=== PATIENT | male | born 1960 | race Caucasian/White ===

== ENCOUNTER 2017-04-29 11:26 | Emergency (ER) | payer BC ==
[~2017-04-29] VITALS: Ht 167.6 cm; Wt 94.2 kg
[2017-04-29 11:30] VITALS: Ht 167.6 cm; Wt 94.2 kg
[2017-04-29 12:51] LABS: ALT/SGPT 19 U/L (12-78); AST/SGOT 12 U/L (15-37); BLOOD UREA NITROGEN 13 mg/dl (7-18); BUN/CREATININE RATIO 19.6 (10-20); CALCIUM 9.1 mg/dl (8.5-10.1); CARBON DIOXIDE 22 mmol/L (21-32); CHLORIDE 107 mmol/L (98-107); CREATININE 0.68 mg/dl (0.60-1.40); GLUCOSE 101 mg/dl (70-99); SODIUM 139 mmol/L (136-145)
[2017-04-29 12:56] LABS: ALKALINE PHOSPHATASE 49 U/L (45-117)
[2017-04-29] MEDS ORDERED: OPTIRAY 320 IV PRN (13:00)
--- NOTE | 2017-04-29 13:20 | DIAGNOSTIC IMAGING REPORT ---
CHEST ONE VIEW PORTABLE CLINICAL HISTORY: Atypical chest pain COMPARISON STUDY: No previous studies for comparison. FINDINGS: The heart is at the upper limits of normal in size. There is no failure. There is no focal pulmonary consolidation. There are no pleural effusions.[ IMPRESSION: No active disease in the chest. Electronically signed by: Rizwan Geronimo M.D. 04/29/2017 1:19 PM Dictated Date/Time: 04/29/2017 1:18 PM
[2017-04-29 13:21] LABS: BASO % 0.2 %; BASO ABS # 0.02 K/uL (0-0.2); COMPLETE YES; EOS % 2.6 %; HEMATOCRIT 37.6 % (42-52); IG% 0.2 %; LYMPH % 18.3 %; LYMPH ABS # 1.69 K/uL (1.2-3.4); MEAN CELL VOLUME 78.8 fL (80-100); MEAN CORPUSCULAR HEMOGLOBIN 26.8 pg (25-34); MEAN PLATELET VOLUME 9.6 fL (7.4-10.4); MONO % 8.7 %; PLATELET COUNT 192 K/uL (130-400); RED BLOOD COUNT 4.77 M/uL (4.7-6.1); WHITE BLOOD COUNT 9.23 K/uL (4.8-10.8)
[2017-04-29] MEDS ORDERED: SITA50TA3 PO (13:29)
[2017-04-29] MEDS ORDERED: ALLO100T PO (13:29)
[2017-04-29] MEDS ORDERED: LORA-749 PO (13:29)
[2017-04-29] MEDS ORDERED: LISI-788 PO (13:29)
[2017-04-29] MEDS ORDERED: DEXT30TA7 PO (13:29)
[2017-04-29] MEDS ORDERED: FENO54TA PO (13:29)
[2017-04-29 14:01] LABS: URINE APPEARANCE CLEAR (CLEAR); URINE BILIRUBIN NEG (NEG); URINE COLOR YELLOW; URINE EPITHELIAL CELL AUTO 0-5 /lpf (0-5); URINE NITRITE NEG (NEG); URINE PH 5.5 (4.5-7.5); URINE SPECIFIC GRAVITY 1.016 (1.000-1.030); UROBILINOGEN NEG (NEG); ZZUR CULT IF INDIC CLEAN CATCH NO
[2017-04-29 14:06] LABS: MANUAL MICROSCOPIC REQUIRED? NO; REVIEW REQ? NO
[2017-04-29 14:24] LABS: LYME DISEASE AB IGG NEG (NEG); LYME DISEASE AB IGM NEG (NEG)
--- NOTE | 2017-04-29 14:49 | DIAGNOSTIC IMAGING REPORT ---
ABDOMEN AND PELVIS CT WITH IV CONTRAST CT DOSE: 978.21 mGycm HISTORY: tearing right upper abdominal pain, no trauma TECHNIQUE: Multiaxial CT images of the abdomen and pelvis were performed following the use of intravenous contrast. COMPARISON STUDY: None. FINDINGS: Right lower lobe groundglass and linear densities. The left lung base is clear. No fractures within the visualized osseous structures. The liver, gallbladder, pancreas, adrenal glands, and right kidney are unremarkable. The spleen is at the upper limits of normal. A 4 mm hypodense lesion within the lower pole of the left kidney is too small to characterize. No retroperitoneal lymphadenopathy. Mild bladder wall thickening. Minimal pelvic free fluid. The prostate gland is mildly enlarged. Colonic diverticulosis. No bowel wall thickening or obstruction. Normal appendix. IMPRESSION: 1. Right lower lobe groundglass and linear densities. This could be due to chronic change/scarring or a mild pneumonitis. 2. No bowel wall thickening or obstruction. 3. Colonic diverticulosis. 4. Normal appendix. 5. Minimal pelvic free fluid. Electronically signed by: Randy Hobbs M.D. 04/29/2017 2:48 PM Dictated Date/Time: 04/29/2017 2:40 PM
[2017-04-29] MEDS ORDERED: ACETAMINOPHEN 500 MG TAB PO STA (15:51)
[2017-04-29] MEDS ORDERED: LEVOFLOXACIN 250 MG TAB PO STA (15:51)
[2017-04-29] MEDS ORDERED: PRED20TA PO (15:53)
[2017-04-29] MEDS ORDERED: LEVO-366 PO (15:53)
[2017-04-29 16:40] VITALS: BP 143/90; PULSE 78; TEMP 37.1; O2SAT 96
--- NOTE | 2017-04-29 20:21 | EMERGENCY ROOM VISIT NOTE ---
History Report prepared by [place]: Clarence Zhang Under the Supervision of: Dr. Steffen Batista M.D. First contact with patient: 12:35 Chief Complaint: ABDOMINAL PAIN Stated Complaint: TEARING SENSATION IN ABD,R FOOT/L ANKLE PAIN Nursing Triage Summary: Pt. reports tearing abdominal pain that started around . Denies any injury, just states that he sat down in his car and it started. Also reporting bilateral ankle pain that started about 3 weeks ago and states he's had three different diagnoses for it (including diabetic neuropathy, cellulitis and plantar fasciitis). History of Present Illness The patient is a 57 year old male who presents to the Emergency Room with complaints of persistent abdominal pain that started a week and a half ago. He says that he was just sitting in his car when the pain came on. The patient describes the pain as a "tearing" pain, and is sometimes worsened when sitting down. He states that he occasionally gets a quick stabbing pain in his abdomen when he sits down. He rates his pain as a 2 or 3 out of 10. The patient denies any bulges in his abdomen. He says that he has continued to have the pain, and his wanted him to come here to be seen. The patient adds that he has had right foot pain as well during this time period that travels intermittently all the way up to his knee. He says that he has not been walking normally. The patient states he has been seen by his primary care PA, as well as at [facility] and the ER in [place]. He was told by his PA that it was diabetic neuropathy, and was given Keflex. The patient says that [facility] diagnosed him with plantar fasciatus, and was told to do exercises, which he has been doing, with no relief of pain, but the swelling has gone down a bit. The patient notes that 4 days ago, he started having left ankle pain. He started using crutches today due to the severity of his pain. The patient says that he has had cold symptoms recently, with congestion. He has hypertension, which he says is under control with medication. The patient was diagnosed with Type 2 diabetes a few months ago, and has had it under control with medication and weight loss. Pt denies LOC, headache, fevers, chills, diaphoresis, visual changes, neck pain, chest pain, breathing difficulties, nausea, vomiting, back pain, melena, hematochezia, urinary symptoms, numbness, weakness, lymphadenopathy, rash, or other complaints. Source of History: patient Onset: A week and a half ago Position: abdomen Symptom Intensity: 2 or 3 out of 10 Quality: stabbing, other (tearing) Timing: other (persistent) Modifying Factors (Worsening): other (sitting down) Note: Associated symptoms: Right foot pain and swelling, intermittently travels up to right knee. Left ankle pain started 4 days ago. Congested. Review of Systems See HPI for pertinent positives and negatives. A total of ten systems were reviewed and were otherwise negative. Past Medical & Surgical Medical Problems: (1) Diabetes (2) Gout (3) HTN (hypertension) (4) Hypertension Family History Cancer Diabetes mellitus Heart disease Hypertension Social History Smoking Status: Never Smoker Marital Status: Housing Status: lives with family Current/Historical Medications Scheduled Allopurinol (Zyloprim), 100 MG PO QAM Fenofibrate (Tricor), 54 MG PO QAM Levofloxacin (Levaquin), 500 MG PO DAILY Lisinopril/Hctz (Zestoretic 20MG/25MG), 1 TAB PO QAM Loratadine & Pseudoephedrine (Claritin-D 24 Hour), 1 TAB PO QAM Prednisone (Prednisone), 20 MG PO DAILY Sitagliptin (Januvia), 50 MG PO QAM Scheduled PRN Dextromethorphan-Guaifenesin (Mucinex Dm), 1 TAB PO Q12 PRN for Nasal Congestion Allergies Coded Allergies: Sulfa Antibiotics (Verified Allergy, Unknown, fever, hives, 04/29/17) Uncoded Allergies: GAMMA GLOBULINS (Allergy, Unknown, fever, 04/29/17) Physical Exam Vital Signs Date Time Temp Pulse Resp B/P (MAP) Pulse Ox O2 Delivery O2 Flow Rate FiO2 04/29/17 16:40 37.1 78 20 143/90 96 04/29/17 14:45 70 13 140/87 95 Room Air 04/29/17 14:00 73 15 136/85 96 Room Air 04/29/17 12:55 80 15 133/81 93 Room Air 04/29/17 12:51 80 04/29/17 11:54 84 16 135/80 95 Room Air 04/29/17 11:30 36.7 87 18 134/77 95 Room Air Physical Exam GENERAL: Awake, alert, well-appearing, in no distress HENT: Normocephalic, atraumatic. Oropharynx unremarkable. EYES: Normal conjunctiva. Sclera non-icteric. NECK: Supple. No nuchal rigidity. FROM. No JVD. RESPIRATORY: Clear to auscultation. CARDIAC: Regular rate, normal rhythm. Extremities warm and well perfused. Pulses equal. ABDOMEN: Soft, non-distended. No tenderness to palpation. No rebound or guarding. No masses. RECTAL: Deferred. MUSCULOSKELETAL: Chest examination reveals no tenderness. The back is symmetrical on inspection without obvious abnormality. There is no CVA tenderness to palpation. No joint edema. LOWER EXTREMITIES: Redness, swelling, and tenderness to right dorsal foot mid- aspect as well as left ankle. NEURO: Normal sensorium. No sensory or motor deficits noted. SKIN: No rash or jaundice noted. Medical Decision & Procedures ER Provider Diagnostic Interpretation: Radiology results as stated below per my review and radiologist interpretation: CHEST ONE VIEW PORTABLE CLINICAL HISTORY: Atypical chest pain COMPARISON STUDY: No previous studies for comparison. FINDINGS: The heart is at the upper limits of normal in size. There is no failure. There is no focal pulmonary consolidation. There are no pleural effusions.[ IMPRESSION: No active disease in the chest. Electronically signed by: Rizwan Geronimo M.D. 04/29/2017 1:19 PM Dictated Date/Time: 04/29/2017 1:18 PM ABDOMEN AND PELVIS CT WITH IV CONTRAST CT DOSE: 978.21 mGycm HISTORY: tearing right upper abdominal pain, no trauma TECHNIQUE: Multiaxial CT images of the abdomen and pelvis were performed following the use of intravenous contrast. COMPARISON STUDY: None. FINDINGS: Right lower lobe groundglass and linear densities. The left lung base is clear. No fractures within the visualized osseous structures. The liver, gallbladder, pancreas, adrenal glands, and right kidney are unremarkable. The spleen is at the upper limits of normal. A 4 mm hypodense lesion within the lower pole of the left kidney is too small to characterize. No retroperitoneal lymphadenopathy. Mild bladder wall thickening. Minimal pelvic free fluid. The prostate gland is mildly enlarged. Colonic diverticulosis. No bowel wall thickening or obstruction. Normal appendix. IMPRESSION: 1. Right lower lobe groundglass and linear densities. This could be due to chronic change/scarring or a mild pneumonitis. 2. No bowel wall thickening or obstruction. 3. Colonic diverticulosis. 4. Normal appendix. 5. Minimal pelvic free fluid. Electronically signed by: Randy Hobbs M.D. 04/29/2017 2:48 PM Dictated Date/Time: 04/29/2017 2:40 PM Laboratory Results 04/29/17 13:00 Red Blood Count 4.77, Mean Corpuscular Volume 78.8, Mean Corpuscular Hemoglobin 26.8, Mean Corpuscular Hemoglobin Concent 34.0, Mean Platelet Volume 9.6, Neutrophils (%) (Auto) 70.0, Lymphocytes (%) (Auto) 18.3, Monocytes (%) (Auto) 8.7, Eosinophils (%) (Auto) 2.6, Basophils (%) (Auto) 0.2, Neutrophils # (Auto) 6.46, Lymphocytes # (Auto) 1.69, Monocytes # (Auto) 0.80, Eosinophils # (Auto) 0.24, Basophils # (Auto) 0.02 04/29/17 11:50 Test 04/29/17 00:00 04/29/17 11:50 04/29/17 13:00 Urine Color YELLOW Urine Appearance CLEAR (CLEAR) Urine pH 5.5 (4.5-7.5) Urine Specific [place] 1.016 (1.000-1.030) Urine Protein NEG (NEG) Urine Glucose (UA) NEG (NEG) Urine Ketones NEG (NEG) Urine Occult Blood NEG (NEG) Urine Nitrite NEG (NEG) Urine Bilirubin NEG (NEG) Urine Urobilinogen NEG (NEG) Urine Leukocyte Esterase TRACE (NEG) Urine WBC (Auto) 1-5 /hpf (0-5) Urine RBC (Auto) 0-4 /hpf (0-4) Urine Hyaline Casts (Auto) 0 /lpf (0-5) Urine Epithelial Cells (Auto) 0-5 /lpf (0-5) Urine Bacteria (Auto) NEG (NEG) Anion Gap 10.0 mmol/L (3-11) Est Creatinine Clear Calc Drug Dose 130.3 ml/min Estimated GFR () 123.7 Estimated GFR (Non- 106.8 BUN/Creatinine Ratio 19.6 (10-20) Calcium Level 9.1 mg/dl (8.5-10.1) Total Bilirubin 1.0 mg/dl (0.2-1) Direct Bilirubin 0.2 mg/dl (0-0.2) Aspartate Amino Transf (AST/SGOT) 12 U/L (15-37) Alanine Aminotransferase (ALT/SGPT) 19 U/L (12-78) Alkaline Phosphatase 49 U/L (45-117) Troponin I < 0.015 ng/ml (0-0.045) Total Protein 7.1 gm/dl (6.4-8.2) Albumin 3.7 gm/dl (3.4-5.0) Lipase 147 U/L (73-393) White Blood Count 9.23 K/uL (4.8-10.8) Red Blood Count 4.77 M/uL (4.7-6.1) Hemoglobin 12.8 g/dL (14.0-18.0) Hematocrit 37.6 % (42-52) Mean Corpuscular Volume 78.8 fL (80-100) Mean Corpuscular Hemoglobin 26.8 pg (25-34) Mean Corpuscular Hemoglobin Concent 34.0 g/dl (32-36) Platelet Count 192 K/uL (130-400) Mean Platelet Volume 9.6 fL (7.4-10.4) Neutrophils (%) (Auto) 70.0 % Lymphocytes (%) (Auto) 18.3 % Monocytes (%) (Auto) 8.7 % Eosinophils (%) (Auto) 2.6 % Basophils (%) (Auto) 0.2 % Neutrophils # (Auto) 6.46 K/uL (1.4-6.5) Lymphocytes # (Auto) 1.69 K/uL (1.2-3.4) Monocytes # (Auto) 0.80 K/uL (0.11-0.59) Eosinophils # (Auto) 0.24 K/uL (0-0.5) Basophils # (Auto) 0.02 K/uL (0-0.2) RDW Standard Deviation 41.9 fL (36.4-46.3) RDW Coefficient of Variation 14.5 % (11.5-14.5) Immature Granulocyte % (Auto) 0.2 % Immature Granulocyte # (Auto) 0.02 K/uL (0.00-0.02) Uric Acid 7.1 mg/dl (2.6-7.2) Lyme Disease IgG Antibody NEG (NEG) Lyme Disease IgM Antibody NEG (NEG) Laboratory results reviewed by me Medications Administered Medications (Trade) Dose Ordered Sig/Nima Route Start Time Stop Time Status Last Admin Dose Admin Levofloxacin (Levaquin Tab) 500 mg NOW STAT PO 04/29/17 15:51 04/29/17 15:53 DC 04/29/17 16:21 500 MG Prednisone (PredniSONE TAB) 20 mg NOW STAT PO 04/29/17 15:51 04/29/17 15:53 DC 04/29/17 16:21 20 MG Acetaminophen (Tylenol Tab) 1,000 mg NOW STAT PO 04/29/17 15:51 04/29/17 15:53 DC 04/29/17 16:21 1,000 MG ECG Indication: abdominal pain Rate (beats per minute): 79 Rhythm: normal sinus Findings: no acute ischemic change, no ectopy ED Course 1242: The patient was evaluated in room C8. A complete history and physical exam was performed. 1551: Ordered Tylenol Tab 1000 mg PO, Prednisone Tab 20 mg PO, Levaquin Tab 500 mg PO. 1555: I reevaluated the patient. Discussed results and discharge instructions: he verbalized understanding and agreement. The patient is ready for discharge. Medical Decision Medication Reconciliation: I attest that I have personally reviewed the patient' s current medication list Blood pressure screening: Patient was found to have an elevated blood pressure and was referred to their primary doctor for recheck and further treatment. Triage Nursing notes reviewed. The patient's presentation and history were concerning for right upper abdominal pain as well as foot/ankle pain. Patient also noted some URI-like symptoms. Etiologies such as musculoskeletal, gout, appendicitis, diverticulitis, obstruction, inflammatory bowel disease, renal colic, PUD, biliary pathology, pancreatitis, mesenteric ischemia, aortic pathology, infections, genitourinary, UTI, perforated viscus, cellulitis, urinary sources, as well as others were entertained. The patient was evaluated. He had a benign abdomen. He has some mild left ankle swelling and pain and right foot pain as well. There is no clear evidence of cellulitis. He had no findings to suggest plantar fasciitis at this time. Patient does note a history of gout. Blood work was obtained. He had a mild anemia on CBC. Urinalysis and chemistry panel was unremarkable. Lyme testing was negative. The patient's uric acid was at the upper limits of normal. Imaging revealed a right-sided pneumonitis. Given the patient's history he was started on oral Levaquin. The patient will need close outpatient follow-up. I did discuss judicious use of a low dose prednisone for suspected gout and the patient was in agreement. He will modify his diet and check his sugar regularly. The patient will be started on 20 mg of prednisone just for a short period, 4 days. He may need a higher dose however I'm concerned that this may cause his sugar to elevate significantly. I gave my usual and customary discussion regarding this issue. If he worsens in any way he will be back. By the evaluation outlined above other emergent etiologies such as those listed in the differential, as well as others, were deemed relatively unlikely. The patient was educated about the findings as listed above. All questions were answered and the patient was pleased with the treatment. Return instructions were outlined and the patient was discharged in stable condition. The patient was referred to his PCP Tuesday for follow-up for a recheck of the current condition. Impression Primary Impression: RUQ abdominal pain Additional Impressions: Right lower lobe pneumonitis Gout Scribe Attestation The scribe's documentation has been prepared under my direction and personally reviewed by me in its entirety. I confirm that the note above accurately reflects all work, treatment, procedures, and medical decision making performed by me. Departure Information Dispostion Home / Self-Care Prescriptions Levofloxacin (Levaquin) 500 Mg Tab 500 MG PO DAILY for 9 Days, #9 TAB Prov: Steffen Batista MD 04/29/17 Prednisone (Prednisone) 20 Mg Tab 20 MG PO DAILY for 4 Days, #4 TAB Prov: Steffen Batista MD 04/29/17 Referrals Rufina Lizama PA-C (PCP) Forms Call Back Authorization, HOME CARE DOCUMENTATION FORM, IMPORTANT VISIT INFORMATION, Work Instructions Patient Instructions My [facility] Additional Instructions Levafloxacin(Levaquin) 500mg: Take one pill daily for 9 days for your infection. All antibiotics can cause diarrhea. If this occurs and you feel worse or it does not resolve in 1-2 days follow up with your doctor or return to the Emergency Department as this could be signs of serious underlying problems. Any medication can cause an allergic reaction, stop the pills immediately and return to the ER for rash, hives, breathing difficulties, or swelling. Acetaminophen(Tylenol) may be used for fever or pain. Use 1000mg every six hours as needed. Avoid using more than 4000mg in a 24 hour period. Prednisone 20 mg: Once daily until the prescription is finished. Rest and drink plenty of fluids. Avoid strenuous activity until your symptoms resolve and your breathing returns to normal. Return to the ER for chest pain, difficulty breathing, persistent fevers, vomiting, worsening of your condition, or as needed. Avoid sugary foods and simple carbohydrates as discussed while taking the prednisone as this will increase your blood sugar. Take your blood sugar twice daily for follow-up with your doctor. Follow up with your primary physician in 2-3 days for a recheck of the current condition. Also monitor your blood pressure. Problem Qualifiers
== END 2017-04-29 16:40 | disposition home or self-care (01) ==
LOC: C.EDB 11:29 → C.EDC 16:40
DX: R10.11 Right upper quadrant pain (principal); J18.9 Pneumonia, unspecified organism; M10.9 Gout, unspecified